=== PATIENT | female | born 1980 | race Caucasian/White ===

== ENCOUNTER 2020-03-08 18:10 | Emergency (ER) | payer MEDICAID ==
[~2020-03-08] VITALS: Ht 157.5 cm; Wt 68.2 kg
[2020-03-08 18:43] LABS: GLUCOSE,POINT OF CARE 99 MG/DL (70-110)
[2020-03-08 19:05] VITALS: BP 126/77
== END 2020-03-08 20:05 | disposition home or self-care (01) ==
LOC: EMS 18:14
DX: G62.9 Polyneuropathy, unspecified (principal); F41.9 Anxiety disorder, unspecified
CPT/HCPCS: 70450; 82948